=== PATIENT | male | born 1990 | race Caucasian/White ===

== ENCOUNTER 2019-03-18 12:07 | Emergency (ER) | payer BC, OTHER ==
--- NOTE | 2019-03-18 12:23 | ED Physician Documentation ---
Sore Throat/Dental Pain - HISTORIAN Historian: patient - HPI Stated Complaint: dental pain Chief Complaint: Dental Pain Additional Information: Patient presents to ED with a 2 day history of worsening right lower dental pain. Patient reports a lifetime history of dental problems due to mother drinking alcohol during her . He denies fever. He reports having a dental appointment in a couple of months. Onset: days ago (2) Context: Fractured Tooth Associated Symptoms: denies: fever, chills - ROS CONST: no problems CVS/RESP: denies: chest pain, shortness of breath GI/: denies: nausea, vomiting MS/SKIN/LYMPH: denies: muscle aches NEURO/PSYCH: denies: headache - PAST HX Past History: none Other History: none Allergies/Adverse Reactions: Allergies Allergy/AdvReac Type Severity Reaction Status Date / Time No Known Allergies Allergy Verified 03/18/19 12:18 Home Medications: Ambulatory Orders Medication Instructions Recorded Penicillin V Potassium [Pen V K] 500 mg PO Q8 14 Days #42 tablet 03/18/19 Tramadol HCl [Ultram] 50 mg PO Q6 PRN #15 tablet 03/18/19 - SOCIAL HX Smoking History: cigarettes, greater than 1 pack/day Alcohol Use: none Drug Use: none - FAMILY HX Family History: No - VITAL SIGNS Vital Signs: Vital Signs Temp Pulse Resp BP Pulse Ox 133/96 06/07/15 21:25 - REVIEWED ASSESSMENTS Nursing Assessment Reviewed: Yes Vitals Reviewed: Yes Dental Pain Physical Exam - EXAM General Appearance: no acute distress, alert Head/Neck: no lymphadenopathy Mouth/Throat: pharynx nml, dental tenderness (right lower), gum swelling around teeth, widespread dental decay Ear/Nose: nml inspection Respiratory: no resp. distress, breath sounds nml CVS: reg. rate & rhythm, heart sounds nml Abdomen: soft, normal bowel sounds, non-tender Extremities: non-tender, nml ROM Skin: warm/dry, normal color Neuro/Psych: none Discharge Clincal Impression: Pain, dental Prescriptions: Penicillin V Potassium [Pen V K] 500 mg PO Q8 14 Days #42 tablet Tramadol HCl [Ultram] 50 mg PO Q6 PRN #15 tablet PRN Reason: dental pain Referrals: Primary Doctor,No [Primary Care Provider] - 2 Days Additional Instructions: 1. Take antibiotics until gone. 2. Tramadol every 6 hours as needed for pain. You may add Tylenol or Ibuprofen to Tramadol for better pain control 3. Mouth rinses after meals and at bedtime. 1 tsp salt and 1 tsp baking soda in 4 ounces of warm water. Rinse/swish for 1 minute 4. Follow up with Dentist as soon as possible 5. Return to ER for new or worsening symptoms Condition: Stable Disposition: 01 HOME, SELF-CARE Decision to Admit: NO Date of Decison to Admit: 03/18/19 Decision Time: 12:37
[2019-03-18 12:26] VITALS: BP 129/84
== END 2019-03-18 12:44 | disposition home or self-care (01) ==
LOC: ED 12:07
DX: K08.89 Other specified disorders of teeth and supporting structures (principal)
CPT/HCPCS: 99282; 99283